=== PATIENT | male | born 1975 | race Caucasian/White ===

== ENCOUNTER → 2016-12-05 | Outpatient (CLI) | payer OTHER ==
--- NOTE | 2016-12-08 05:43 | SLEEPHOME ---
DATE OF PROCEDURE: 12/05/2016 ORDERED BY: JONATHAN Mac [facility] home sleep testing was performed due to concern for the obstructive sleep apnea syndrome. Portable home monitoring was performed using a NOX-T3 respiratory monitoring device. Continuous record was made of pulse, oxygen saturation, airlflow, chest and abdominal strain, and body position. 10 hours and 59 minutes of data were reviewed. Of these, 10 hours and 20 minutes were marked as time in bed. During the interval marked time in bed, there were 126 respiratory events identified of 10 seconds in duration or greater for a respiratory event index of 12.2. The events were primarily obstructive, but mixed and central apneas were also seen. Pulse rate and saturation data are unavailable as the probe became dislodged. Respiratory events occurred in both the supine and non-supine position. Maximal duration of respiratory events exceeded 30 seconds. IMPRESSION: Abnormal home sleep testing with repetitive respiratory events and a respiratory event index of 12.2 with prolonged apneic intervals is consistent with the obstructive sleep apnea syndrome. RECOMMENDATION: The patient should be encouraged to undergo formal sleep evaluation and in-laboratory pressure titration.
== END ==
LOC: M SLEEP HO 12:59
PROVIDERS: ATTEND Physician Assistant
DX: G47.31 Primary central sleep apnea (principal); G47.33 Obstructive sleep apnea (adult) (pediatric)

== ENCOUNTER → 2016-12-08 | Outpatient (CLI) | payer OTHER ==
[2016-12-08 16:17] LABS: ALBUMIN 4.3 GM/DL (3.2-5.2); ALBUMIN/GLOBULIN RATIO 1.54 (1.00-1.93); ALKALINE PHOSPHATASE 97 U/L (45-117); ALT/SGPT 35 U/L (12-78); ANION GAP 12 MEQ/L (8-16); AST/SGOT 18 U/L (15-37); BILIRUBIN,TOTAL 0.4 MG/DL (0.2-1.0); BLOOD UREA NITROGEN 13 MG/DL (7-18); CALCIUM LEVEL 9.1 MG/DL (8.5-10.1); CARBON DIOXIDE LEVEL 26 MEQ/L (21-32); CHLORIDE LEVEL 104 MEQ/L (98-107); CHOLESTEROL LEVEL 148 MG/DL (<200); CREATININE FOR GFR 1.19 MG/DL (0.70-1.30); FREE T4 1.03 NG/DL (0.76-1.46); GLOMERULAR FILTRATION RATE > 60.0 (>60); GLUCOSE, FASTING 95 MG/DL (70-105); SODIUM LEVEL 142 MEQ/L (136-145); TOTAL PROTEIN 7.1 GM/DL (6.4-8.2); TRIGLYCERIDES LEVEL 540 MG/DL (<150)
== END ==
LOC: M LAB 13:50
PROVIDERS: ATTEND Physician Assistant
DX: Z13.1 Encounter for screening for diabetes mellitus (principal); Z13.220 Encounter for screening for lipoid disorders

== ENCOUNTER → 2017-03-01 | Outpatient (CLI) | payer OTHER ==
--- NOTE | 2017-03-04 08:09 | SLEEPCENT ---
DATE OF PROCEDURE: 03/02/2017 ORDERED BY: Bozena Su Nocturnal polysomnography was performed for the titration of pressure therapy in this patient with obstructive sleep apnea syndrome based on clinical diagnosis, confirmed by home testing, revealing a respiratory event index of 12.2. For testing, the patient was fit with a [employer] nasal mask of medium size. 4 cm of water pressure were applied to the circuit and the lights were extinguished. 7 hours and 45 minutes of data were reviewed. There were 386 minutes of sleep identified. Sleep latency was prolonged at 50 minutes. Rapid eye movement (REM) latency was prolonged at 181 minutes. Sleep architecture improved with optimal pressure therapy. There were 3 REM periods appreciated. Overall sleep efficiency was 84%. EKG showed a sinus rhythm with an average heart rate of 78 beats per minute. EEG showed reasonably normal waveforms for awake and sleep. Respiratory events were found best palliated with continuous positive airway pressure (CPAP) at a pressure of +7. Some limb activity was noted, which did improve over the course of the study. There were 3-4 trains of 30 events. Limb movement arousal index was 5.1. IMPRESSION: Obstructive sleep apnea syndrome (G47.33). RECOMMENDATION: Nightly use of pressure therapy 7 cm of water. Copy To: Thompson Patel
== END ==
LOC: M SLEEP 20:00
PROVIDERS: ATTEND Nurse Practitioner Adult Health
DX: G47.33 Obstructive sleep apnea (adult) (pediatric) (principal)

== ENCOUNTER → 2017-03-01 | Outpatient (CLI) | payer OTHER | LOC: M SLEEP 19:43 | PROVIDERS: ATTEND Nurse Practitioner Adult Health | DX: G47.33 Obstructive sleep apnea (adult) (pediatric) (principal) ==

== ENCOUNTER → 2017-04-25 | Outpatient (CLI) | payer OTHER ==
[2017-04-25 20:19] LABS: ALBUMIN/GLOBULIN RATIO 1.38 (1.00-1.93); ALKALINE PHOSPHATASE 121 U/L (45-117); ALT/SGPT 31 U/L (12-78); ANION GAP 9 MEQ/L (8-16); AST/SGOT 19 U/L (15-37); BILIRUBIN,TOTAL 0.6 MG/DL (0.2-1.0); BLOOD UREA NITROGEN 10 MG/DL (7-18); CALCIUM LEVEL 8.6 MG/DL (8.5-10.1); CARBON DIOXIDE LEVEL 28 MEQ/L (21-32); CHLORIDE LEVEL 105 MEQ/L (98-107); CHOLESTEROL LEVEL 164 MG/DL (<200); CREATININE FOR GFR 1.37 MG/DL (0.70-1.30); GLOMERULAR FILTRATION RATE > 60.0 (>60); GLUCOSE, FASTING 99 MG/DL (70-105); POTASSIUM SERUM 3.7 MEQ/L (3.5-5.1); SODIUM LEVEL 142 MEQ/L (136-145); TOTAL PROTEIN 6.9 GM/DL (6.4-8.2); TRIGLYCERIDES LEVEL 693 MG/DL (<150); URIC ACID 8.6 MG/DL (3.5-7.2)
[2017-04-25 20:30] LABS: BASO % 0.6 % (0.0-1.0); EOS # 0.1 K/mm3 (0.0-0.50); EOS % 1.8 % (0.0-3.0); LARGE UNSTAINED CELL # 0.1 K/mm3 (0.0-0.4); LARGE UNSTAINED CELL % 1.4 % (0.0-4.0); LYMPH # 1.5 K/mm3 (1.5-4.5); MEAN CORPUSCULAR HEMOGLOBIN 31.1 pg (27.0-33.0); MEAN CORPUSCULAR HGB CONC 35.6 g/dl (32.0-36.5); MEAN CORPUSCULAR VOLUME 87.5 fl (80.0-96.0); MONO # 0.3 K/mm3 (0.0-0.8); MONO % 4.3 % (0.0-5.0); NEUTROPHILS # 4.5 K/mm3 (1.8-7.7); NEUTROPHILS % 68.8 % (36.0-66.0); PLATELET COUNT, AUTOMATED 167 k/mm3 (150-450); RED CELL DISTRIBUTION WIDTH 13.1 % (11.5-14.5); WHITE BLOOD COUNT 6.6 K/mm3 (4.0-10.0)
[2017-04-25 21:40] LABS: ERYTHROCYTE SEDIMENTATION RATE 1 mm/hr (0-15)
[2017-04-28 18:14] LABS: Lyme Disease IgG/IgM Antibodie <0.91 ISR (0.00-0.90); Lyme Disease IgM Ab Quantitati <0.80 index (0.00-0.79)
== END ==
LOC: M LRY 14:07
PROVIDERS: ATTEND Physician Assistant
DX: M79.642 Pain in left hand (principal); E78.2 Mixed hyperlipidemia

== ENCOUNTER → 2017-05-29 | Outpatient (CLI) | payer OTHER ==
--- NOTE | 2017-05-30 10:09 | REP ---
LEFT WRIST, FOUR VIEWS: Images were submitted for interpretation 9:30 a.m. 05/30/2017. Four views of the left wrist are performed. I see no evidence of acute fracture or dislocation. Joint spaces appear unremarkable. No intrinsic osseous pathology is seen. IMPRESSION: Negative left wrist series. Signed by Flex Johnson MD 05/30/2017 05:08 P
== END ==
LOC: M SMT 14:55
PROVIDERS: ATTEND Physician Assistant
DX: M25.532 Pain in left wrist (principal)